=== PATIENT | female | born 1945 | race Caucasian/White ===

== ENCOUNTER 2016-05-29 07:36 | Emergency (ER) | payer MEDICARE, OTHER ==
[~2016-05-29] VITALS: Ht 170.2 cm; Wt 111.9 kg
[~2016-05-29 07:36] MED LIST: ASCO-296 PO; ATOR10TA33 PO; CALC-585 PO; CALC-652 PO; CHOL200026 PO; DIAZ5TAB4 PO; DOCO1CAP6 PO; LORA10TA7 PO; MULT-543 PO; NAPR220T8 PO; POTA99TA16 PO; RANI-197 PO; RISP1TAB PO; SERT-77 PO; TRAM-277 PO; [UNRECOGNIZED DRUG - CODE] PO
--- OUTSIDE RECORDS SUMMARY | 2016-05-29 07:40 | XMS REPORT | CCD ---
Author Author YOVANI RUEDA Organization Unknown Address [address] [place] [phone] Phone 0 Care Team Providers Care Net Repairer Name Role Phone JOSELITO RUIZ Attending Physician 0 Vital Signs Unknown or Not Available. Allergies Allergy Code Allergy Type Reaction Status CLINDAMYCIN 88941 Drug allergy Active KEFLEX 39504 Drug allergy Active SIMVASTATIN 98438 Drug allergy Active Procedures Unknown or Not Available. History of Immunizations Unknown or Not Available. Problems Unknown or Not Available. Results UA AUTO W/ MICRO - Collect Date/Time: 07/14/2015 15:18 Test Name Code Test Result Test Units Test Ref Range COLOR Yellow N/A NORMAL: Yellow APPEARANCE Clear N/ A NORMAL: Clear GLUCOSE Negative N/ A NORMAL: Negative BILIRUBIN Negative N /A NORMAL: Negative KETONE Trace N/A NORMAL: Negative SPEC GRAVITY >=1.030 N/A NORMAL: 1.005-1.030 BLOOD Negative N/A NORMAL: Negative PROTEIN Negative N/ A NORMAL: Negative PH 5.5 N/A NORMAL: 5.0-8.0 UROBILINOGEN 0.2 N/ A NORMAL: Negative NITRITE Positive N/ A NORMAL: Negative LEUKOCYTES Trace N/ A NORMAL: Negative MICRO RBC 0-2 N/A NORMAL: 0-2 MICRO WBC 5-10 N/A NORMAL: 0-2 BACTERIA 3+ N/A NORMAL: None-Trace EPI CELLS 0-5 N/A NORMAL: 0-15 MUCUS Small N/A NORMAL: None-Small AMORPHOUS None Seen N/A NORMAL: None Seen YEAST None Seen N/A NORMAL: None Seen CRYSTALS Calcium O N /A NORMAL: None Seen CAST None Seen N/A NORMAL: None Seen URINE CULTURE? YES N /A CULTURE URINE - Collect Date/Time: 07/14/2015 15:18 Test Name Code Test Result Test Units Test Ref Range SPEC SOURCE: RANDOM N/A Urine Culture, Routine 630-4 Final report N/A Active Medications Unknown or Not Available. Medications Administered During Visit Unknown or Not Available. Encounters Encounter Diagnosis Diagnosis Code Start Date Frequency of micturition R350 07/14/2015 Social History Smoking Status Code Start Date End Date Never smoker [id number] Patient Decision Aids Unknown or Not Available. Discharge Instructions You were admitted to [facility] on 07/14/2015 15:02 with a principal diagnosis of Frequency of micturition You had the following tests done: CULTURE URINE UA AUTO W/ MICRO You were discharged from [facility] on 07/14/2015 15:02 Should you have any questions prior to discharge, please contact a member of your healthcare team. If you have left the hospital and have any questions, please contact your primary care physician. Chief Complaint and Reason For Visit Chief Complaint Date of Onset LAB Function Status Unknown or Not Available. Plan of Care Unknown or Not Available. Referral/Transition of Care Unknown or Not Available.
--- OUTSIDE RECORDS SUMMARY | 2016-05-29 07:40 | XMS REPORT | CCD ---
Author Author YOVANI RUEDA Organization Unknown Address [address], [place] [phone] Phone 0 Care Team Providers Care Phlebotomy Technologist Name Role Phone JOSELITO RUIZ Attending Physician 0 Vital Signs Unknown or Not Available. Allergies Allergy Code Allergy Type Reaction Status CLINDAMYCIN 01916 Drug allergy Active KEFLEX 67924 Drug allergy Active SIMVASTATIN 91272 Drug allergy Active Procedures Unknown or Not Available. History of Immunizations Unknown or Not Available. Problems Unknown or Not Available. Results COMP METABOLIC - Collect Date/Time: 02/08/2015 11:57 Test Name Code Test Result Test Units Test Ref Range GLUCOSE 103 mg/dL L=70 H=110 BUN 23 mg/dL L=7 H=18 CREATININE 0.90 mg/ dL L=0.60 H=1.30 AGE 69 YEARS GFR 66.4 SODIUM 138 mmol/L L=136 H=145 POTASSIUM 4.3 mmol/ L L=3.5 H=5.1 CHLORIDE 105 mmol/L L=98 H=107 CO2 26 mmol/L L=21 H=32 CALCIUM 9.1 mg/dL L=8.5 H=10.1 AST 13 U/L L=15 H=37 ALT 21 U/L L=12 H=78 ALKALINE PHOS 76 U/ L L=50 H=136 TOTAL PROTEIN 7.2 g/ dL L=6.4 H=8.2 ALBUMIN 4.3 g/dL L=3.4 H=5.0 TOTAL BILI 0.40 mg/ dL L=0.00 H=1.00 THYROXINE (T4) FREE - Collect Date/Time: 02/08/2015 11:57 Test Name Code Test Result Test Units Test Ref Range FT4 0.85 ng/dL L=0.76 H=1.46 TSH - Collect Date/Time: 02/08/2015 11:57 Test Name Code Test Result Test Units Test Ref Range TSH 0.71 uIU/mL L=0.36 H=3.74 CBC W/ DIFF - Collect Date/Time: 02/08/2015 11:57 Test Name Code Test Result Test Units Test Ref Range WBC 5.2 x10^3 L=4.8 H=10.8 RBC 4.26 x10^6 L=4.20 H=5.40 HEMOGLOBIN 13.6 g/ dL L=12.0 H=16.0 HEMATOCRIT 41.2 % L=37.0 H=47.0 MCV 97 fL L=80 H=100 MCH 31.9 pg L=27.0 H=33.0 MCHC 32.9 g/dL L=33.0 H=37.0 RDW 14.1 % L=11.5 H=14.5 PLATELETS 231 x10^3 L=150 H=450 MPV 6.9 fL L=7.8 H=11.0 NEUTROPHILS 60.7 % L=40.0 H=80.0 LYMPHOCYTES 28.8 % L=20.0 H=45.0 MONOCYTES 7.5 % L=0.0 H=10.0 EOSINOPHILS 2.4 % L=0.0 H=5.0 BASOPHILS 0.6 % L=0.0 H=2.0 REFLEX MAN DIFF NO N /A UA AUTO W/ MICRO - Collect Date/Time: 02/08/2015 11:57 Test Name Code Test Result Test Units Test Ref Range COLOR Yellow N/A NORMAL: Yellow APPEARANCE Clear N/ A NORMAL: Clear GLUCOSE Negative N/ A NORMAL: Negative BILIRUBIN Negative N /A NORMAL: Negative KETONE Trace N/A NORMAL: Negative SPEC GRAVITY >=1.030 N/A NORMAL: 1.005-1.030 BLOOD Negative N/A NORMAL: Negative PROTEIN 30 N/A NORMAL: Negative PH 5.0 N/A NORMAL: 5.0-8.0 UROBILINOGEN 0.2 N/ A NORMAL: Negative NITRITE Negative N/ A NORMAL: Negative LEUKOCYTES Negative N/A NORMAL: Negative MICRO RBC 0-2 N/A NORMAL: 0-2 MICRO WBC 10-20 N/A NORMAL: 0-2 BACTERIA 1+ N/A NORMAL: None-Trace EPI CELLS 5-10 N/A NORMAL: 0-15 MUCUS Large N/A NORMAL: None-Small AMORPHOUS Small N/A NORMAL: None Seen YEAST None Seen N/A NORMAL: None Seen CRYSTALS Calcium O N /A NORMAL: None Seen CAST None Seen N/A NORMAL: None Seen URINE CULTURE? NO N/ A Active Medications Unknown or Not Available. Medications Administered During Visit Unknown or Not Available. Encounters Encounter Diagnosis Diagnosis Code Start Date Unspecified atrial fibrillation [id number] Social History Smoking Status Code Start Date End Date Never smoker [id number] Patient Decision Aids Unknown or Not Available. Discharge Instructions You were admitted to [facility] on 02/08/2015 with a principal diagnosis of Unspecified atrial fibrillation. You were discharged from [facility] on 02/08/2015. Should you have any questions prior to [...]
--- OUTSIDE RECORDS SUMMARY | 2016-05-29 07:40 | XMS REPORT | CCD ---
Author Author WINIFRED VANN Organization Unknown Address [address] [place] [phone] Phone 0 Care Team Providers Care Station Operator Name Role Phone JOSELITO RUIZ Attending Physician 0 Vital Signs Unknown or Not Available. Allergies Unknown or Not Available. Procedures Unknown or Not Available. History of Immunizations Unknown or Not Available. Problems Unknown or Not Available. Results Unknown or Not Available. Active Medications Unknown or Not Available. Medications Administered During Visit Unknown or Not Available. Encounters Unknown or Not Available. Social History Smoking Status Code Start Date End Date Never smoker [id number] Patient Decision Aids Unknown or Not Available. Discharge Instructions You were admitted to [facility] on 10/12/2014. You were discharged from [facility] on 10/12/2014. Should you have any questions prior to discharge, please contact a member of your healthcare team. If you have left the hospital and have any questions, please contact your primary care physician. Chief Complaint and Reason For Visit Chief Complaint Date of Onset MM BILAT SCREEN Function Status Unknown or Not Available. Plan of Care Unknown or Not Available. Referral/Transition of Care Unknown or Not Available.
--- OUTSIDE RECORDS SUMMARY | 2016-05-29 07:40 | XMS REPORT | CCD ---
Author Author WINIFRED VANN Organization Unknown Address [address] [place] [phone] Phone 0 Care Team Providers Care Administrative Resources Associate Name Role Phone JOSELITO RUIZ Attending Physician [...] Code Start Date End Date Never smoker [id number] Patient Decision Aids Unknown or Not Available. Discharge Instructions You were admitted to [facility] on 02/27/2014. You were discharged from [facility] on 02/27/2014. Should you have any questions prior to discharge, please contact a member of your healthcare team. If you have left the hospital and have any questions, please contact your primary care physician. Chief Complaint and Reason For Visit Chief Complaint Date of Onset PRE-OP EKG Function Status Unknown or Not Available. Plan of Care Unknown or Not Available. Referral/Transition of Care Unknown or Not Available.
--- OUTSIDE RECORDS SUMMARY | 2016-05-29 07:41 | XMS REPORT | CCD ---
Author Author YOVANI RUEDA Organization Unknown Address [address] [place] [phone] Phone 0 Care Team Providers Care Ex Assistant/Program Director Name Role Phone LIZZIE ZARATE Attending Physician 0 Vital Signs Unknown or Not Available. Allergies Allergy Code Allergy Type Reaction Status CLINDAMYCIN 55531 Drug allergy Active IODINE 5933 Drug allergy Active KEFLEX 20392 Drug allergy Active SIMVASTATIN 75714 Drug allergy Active Procedures Unknown or Not Available. History of Immunizations Unknown or Not Available. Problems Unknown or Not Available. Results Unknown or Not Available. Active Medications Unknown or Not Available. Medications Administered During Visit Unknown or Not Available. Encounters Encounter Diagnosis Diagnosis Code Start Date Trochanteric bursitis, left hip M7062 03/2016 Social History Smoking Status Code Start Date End Date Never smoker [id number] Patient Decision Aids Unknown or Not Available. Discharge Instructions You were admitted to [facility] on 03/23/2016 10:29 with a principal diagnosis of Trochanteric bursitis, left hip You were discharged from [facility] Should you have any questions prior to discharge, please contact a member of your healthcare team. If you have left the hospital and have any questions, please contact your primary care physician. Chief Complaint and Reason For Visit Chief Complaint Date of Onset PHY THER Function Status Unknown or Not Available. Plan of Care Unknown or Not Available. Referral/Transition of Care Unknown or Not Available.
--- OUTSIDE RECORDS SUMMARY | 2016-05-29 07:41 | XMS REPORT | Continuity of Care Document ---
Author Author [facility] Organization [facility] Address Unknown Phone Unavailable Allergies Active Description Code Type Severity Reaction Onset Reported/Identified Relationship to Patient Clinical Status Yes CEPHALEXIN MONOHYDRATE 6830 1 N/A N/A Yes clindamycin 2794 1 N/A N/A Yes iodine 852 1 N/A N/A Yes Xehydcu-Xod-Byy Reductase Inhibitors 139187 3 N/A N/A Yes iodine Drug Allergy Moderate SHAKING, VOMITING 04/14/2013 Yes No Known Food Allergies Food Allergy N/A N/A 04/14/2013 Medications Problems Date Dx Coded Attending Type Code Diagnosis Diagnosed By 04/14/2013 Micah Nagel MD Final 272.2 MIXED HYPERLIPIDEMIA 04/14/2013 Micah Nagel MD Final 278.00 OBESITY NOS 04/14/2013 Micah Nagel MD Final 296.80 BIPOLAR DISORDER NOS 04/14/2013 Micah Nagel MD Final 427.31 ATRIAL FIBRILLATION 04/14/2013 Micah Nagel MD Admitting 786.50 CHEST PAIN NOS 04/14/2013 Micah Nagel MD Final 786.59 CHEST PAIN NEC 04/14/2013 Micah Nagel MD Final V85.37 BMI 37.0-37.9 ADULT 04/14/2013 Micah Nagel MD Admitting 786.51 PRECORDIAL PAIN 03/20/2016 W G89.29 Other chronic pain 03/20/2016 W 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 Visit Date/Time Discharge Status Pt. Type Provider Facility Loc./Unit Complaint [id number] 04/14/2013 12:51:00 2013 21:52:00 DIS Outpatient Micah Nagel MD [facility] on [address]
--- OUTSIDE RECORDS SUMMARY | 2016-05-29 07:41 | XMS REPORT | CCD ---
Author Author WINIFRED VANN Organization Unknown Address [address] [place] [phone] Phone 0 Care Team Providers Care Residential Advisor Name Role Phone JOSELITO RUIZ Attending Physician [...] Code Start Date End Date Never smoker [id number] Patient Decision Aids Unknown or Not Available. Discharge Instructions [facility] were [facility] on 10/12/2014. You were discharged from [facility] on 10/12/2014. Should you have any questions [...]
--- OUTSIDE RECORDS SUMMARY | 2016-05-29 07:41 | XMS REPORT | CCD ---
Author Author WINIFRED VANN Organization Unknown Address [address] [place] [phone] Phone 0 Care Team Providers Care Supply Officer Name Role Phone JOSELITO RUIZ Attending Physician 0 Vital Signs Unknown or Not Available. Allergies Unknown or Not Available. Procedures Unknown or Not Available. History of Immunizations Unknown or Not Available. Problems Unknown or Not Available. Results Unknown or Not Available. Medications Unknown or Not Available. Medications Administered Unknown or Not Available. Encounters Unknown or Not Available. Social History Smoking Status Code Start Date End Date Never smoker [id number] Patient Decision Aids Unknown or Not Available. Discharge Instructions You were admitted to [facility] on 11/18/2013[facility] You were discharged from [facility] on 11/18/2013. Should you have any questions prior to discharge, please contact a member of your healthcare team. If you have left the hospital and have any questions, please contact your primary care physician. Chief Complaint and Reason For Visit Chief Complaint Date of Onset US SOFT TISSUE HEAD NECK Function Status Unknown or Not Available. Plan of Care Unknown or Not Available. Referral/Transition of Care Unknown or Not Available.
--- OUTSIDE RECORDS SUMMARY | 2016-05-29 07:41 | XMS REPORT | CCD ---
Author Author WINIFRED VANN Organization Unknown Address [address], [place] [phone] Phone 0 Care Team Providers Care Newspaper Writer Name Role Phone JOSELITO RUIZ Attending Physician 0 Vital Signs Unknown or Not Available. Allergies Unknown or Not Available. Procedures Unknown or Not Available. History of Immunizations Unknown or Not Available. Problems Unknown or Not Available. Results HEPATIC FUNCTION - Collect Date/Time: 11/11/2013 15:25 Test Name Code Test Result Test Units Test Ref Range AST 12 U/L L=15 H=37 ALT 23 U/L L=12 H=78 ALKALINE PHOS 63 U/ L L=50 H=136 TOTAL PROTEIN 7.0 g/ dL L=6.4 H=8.2 ALBUMIN 4.0 g/dL L=3.4 H=5.0 TOTAL BILI 0.50 mg/ dL L=0.00 H=1.00 DIRECT BILI 0.10 mg/ dL L=0.00 H=0.30 LIPID PANEL - Collect Date/Time: 11/11/2013 15:25 Test Name Code Test Result Test Units Test Ref Range CHOLESTEROL 251 mg/ dL L=0 H=200 TRIGLYCERIDES 51 mg/ dL L=30 H=150 HDL 91 mg/dL L=50 H=60 LDL, CALC 150 mg/dL L=0 H=100 VLDL 10 mg/dL L=0 H=40 CHOL/HDL RISK 2.8 RATIO L=0.0 H=4.4 PT FASTING: NO N/A THYROXINE (T4) FREE - Collect Date/Time: 11/11/2013 15:25 Test Name Code Test Result Test Units Test Ref Range FT4 1.06 ng/dL L=0.76 H=1.46 TSH - Collect Date/Time: 11/11/2013 15:25 Test Name Code Test Result Test Units Test Ref Range TSH 2.01 uIU/mL L=0.36 H=3.74 Medications Unknown or Not Available. Medications Administered Unknown or Not Available. Encounters Encounter Diagnosis Diagnosis Code Start Date HYPERLIPIDEMIA NEC NOS 2724 11/11/2013 Social History Smoking Status Code Start Date End Date Never smoker [id number] Patient Decision Aids Unknown or Not Available. Discharge Instructions You were admitted to [facility] on 11/11/2013 with a principal diagnosis of HYPERLIPIDEMIA NEC NOS. You were discharged from [facility] on 11/11/2013. Should you have any questions prior to [...]
--- OUTSIDE RECORDS SUMMARY | 2016-05-29 07:41 | XMS REPORT | CCD ---
Author Author BECKY ORTA Organization Unknown Address [address] [place] [phone] Phone 0 Care Team Providers Care Supersonic Engineer Name Role Phone JOSELITO RUIZ Attending Physician 0 Vital Signs Unknown. Allergies Unknown. Procedures Unknown. History of Immunizations Unknown. Problems Unknown. Results COMP METABOLIC Test Name Code Test Result Test Units Test Date/Time GLUCOSE 103.0000 mg/ dL 03/12/2013 15:10 BUN 29.0000 mg/dL 03/12/2013 15:10 CREATININE 0.9000 mg /dL 03/12/2013 15:10 [age] YE[age] 03/12/2013 15:10 GFR 66.8000 03/12/2013 15:10 SODIUM 143.0000 mmol /L 03/12/2013 15:10 POTASSIUM 4.2000 mmol/L 03/12/2013 15:10 CHLORIDE 107.0000 mmol/L 03/12/2013 15:10 CO2 27.0000 mmol/L 03/12/2013 15:10 CALCIUM 9.0000 mg/ dL 03/12/2013 15:10 AST 14.0000 U/L 03/12/2013 15:10 ALT 30.0000 U/L 03/12/2013 15:10 ALKALINE PHOS 91.0000 U/L 03/12/2013 15:10 TOTAL PROTEIN 7.3000 g/dL 03/12/2013 15:10 ALBUMIN 4.1000 g/dL 03/12/2013 15:10 TOTAL BILI 0.5000 mg /dL 03/12/2013 15:10 CBC W/ DIFF Test Name Code Test Result Test Units Test Date/Time WBC 5.7000 x10^3 03/12/2013 15:10 RBC 4.1200 x10^6 03/12/2013 15:10 HEMOGLOBIN 13.2000 g /dL 03/12/2013 15:10 HEMATOCRIT 40.0000 % 03/12/2013 15:10 MCV 97.0000 fL 03/12/2013 15:10 MCH 32.1000 pg 03/12/2013 15:10 MCHC 33.2000 g/dL 03/12/2013 15:10 RDW 13.6000 % 03/12/2013 15:10 PLATELETS 219.0000 x10^3 03/12/2013 15:10 MPV 7.4000 fL 03/12/2013 15:10 NEUTROPHILS 49.1000 % 03/12/2013 15:10 LYMPHOCYTES 36.3000 % 03/12/2013 15:10 MONOCYTES 10.7000 % 03/12/2013 15:10 EOSINOPHILS 3.1000 % 03/12/2013 15:10 BASOPHILS 0.8000 % 03/12/2013 15:10 REFLEX MAN DIFF NO N /A 03/12/2013 15:10 THYROXINE (T4) FREE Test Name Code Test Result Test Units Test Date/Time FT4 1.1000 ng/dL 03/12/2013 15:10 LIPID PANEL Test Name Code Test Result Test Units Test Date/Time CHOLESTEROL 193.0000 mg/dL 03/12/2013 15:10 TRIGLYCERIDES 79.0000 mg/dL 03/12/2013 15:10 HDL 89.0000 mg/dL 03/12/2013 15:10 LDL, CALC 88.0000 mg /dL 03/12/2013 15:10 VLDL 16.0000 mg/dL 03/12/2013 15:10 CHOL/HDL RISK 2.2000 RATIO 03/12/2013 15:10 PT FASTING: NO N/A 03/12/2013 15:10 TROPONIN I (QUANT) Test Name Code Test Result Test Units Test Date/Time TROPONIN I 0.0200 ng /mL 03/12/2013 15:10 TSH Test Name Code Test Result Test Units Test Date/Time TSH 2.8100 uIU/mL 03/12/2013 15:10 UA AUTO W/ MICRO Test Name Code Test Result Test Units Test Date/Time COLOR Yellow N/A 03/12/2013 15:10 APPEARANCE Clear N/ A 03/12/2013 15:10 GLUCOSE Negative N/ A 03/12/2013 15:10 BILIRUBIN Negative N /A 03/12/2013 15:10 KETONE Negative N/A 03/12/2013 15:10 SPEC GRAVITY 1.020 N /A 03/12/2013 15:10 BLOOD Negative N/A 03/12/2013 15:10 PROTEIN Trace N/A 03/12/2013 15:10 PH 7.5 N/A 03/12/2013 15:10 UROBILINOGEN 0.2 N/ A 03/12/2013 15:10 NITRITE Negative N/ A 03/12/2013 15:10 LEUKOCYTES Negative N/A 03/12/2013 15:10 MICRO RBC 0-2 N/A 03/12/2013 15:10 MICRO WBC 0-2 N/A 03/12/2013 15:10 BACTERIA Trace N/A 03/12/2013 15:10 EPI CELLS 0-5 N/A 03/12/2013 15:10 MUCUS Trace N/A 03/12/2013 15:10 AMORPHOUS Trace N/A 03/12/2013 15:10 YEAST None Seen N/A 03/12/2013 15:10 CRYSTALS None Seen N /A 03/12/2013 15:10 CAST None Seen N/A 03/12/2013 15:10 URINE CULTURE? NO N/ A 03/12/2013 15:10 Medications Unknown. Medications Administered Unknown. Encounters Unknown. Social History Smoking Status Code Start Date End Date Never smoker [id number] Patient Decision Aids Unknown. Instructions You were admitted to [facility] on 03/12/2013. You had the following tests done: WBC RBC HEMOGLOBIN HEMATOCRIT MCV MCH MCHC RDW PLATELETS MPV NEUTROPHILS LYMPHOCYTES MONOCYTES EOSINOPHILS BASOPHILS REFLEX MAN DIFF GLUCOSE BUN CREATININE AGE GFR SODIUM POTASSIUM CHLORIDE CO2 CALCIUM AST ALT ALKALINE PHOS TOTAL PROTEIN ALBUMIN TOTAL BILI PT FASTING: CHOLESTEROL TRIGLYCERIDES HDL LDL, CALC VLDL CHOL/HDL RISK FT4 TSH TROPONIN I COLOR APPEARANCE GLUCOSE BILIRUBIN KETONE SPEC GRAVITY BLOOD PROTEIN PH UROBILINOGEN NITRITE LEUKOCYTES MICRO RBC MICRO WBC BACTERIA EPI CELLS MUCUS AMORPHOUS YEAST CRYSTALS CAST URINE CULTURE? You were discharged from [facility] on 03/12/2013. Should you have any questions prior to discharge, please contact a member of your healthcare team. If you have left the hospital and have any questions, please contact your primary care physician. Chief Complaint and Reason For Visit Chief Complaint Date of Onset LAB XR CHEST EKG Function Status Unknown. Plan of Care Unknown. Referral/Transition of Care Unknown.
--- OUTSIDE RECORDS SUMMARY | 2016-05-29 07:41 | XMS REPORT | CCD ---
Author Author YOVANI RUEDA Organization Unknown Address [address], [place] [phone] Phone 0 Care Team Providers Care Consumer Loan Underwriter Name Role Phone JOSELITO RUIZ Attending Physician 0 Vital Signs Unknown or Not Available. Allergies Allergy Code Allergy Type Reaction Status CLINDAMYCIN 87929 Drug allergy Active KEFLEX 36030 Drug allergy Active SIMVASTATIN 02738 Drug allergy Active Procedures Procedure Code Procedure Type Date CHEST [id number] 03/31/2015 History of Immunizations Unknown or Not Available. Problems Unknown or Not Available. Results BASIC METABOLIC - Collect Date/Time: 03/31/2015 15:06 Test Name Code Test Result Test Units Test Ref Range GLUCOSE 113 mg/dL L=70 H=110 BUN 22 mg/dL L=7 H=18 CREATININE 0.90 mg/ dL L=0.60 H=1.30 AGE 69 YEARS GFR 66.4 SODIUM 141 mmol/L L=136 H=145 POTASSIUM 3.9 mmol/ L L=3.5 H=5.1 CHLORIDE 104 mmol/L L=98 H=107 CO2 26 mmol/L L=21 H=32 CALCIUM 9.4 mg/dL L=8.5 H=10.1 CBC W/ DIFF - Collect Date/Time: 03/31/2015 15:06 Test Name Code Test Result Test Units Test Ref Range WBC 6.0 x10^3 L=4.8 H=10.8 RBC 4.18 x10^6 L=4.20 H=5.40 HEMOGLOBIN 13.4 g/ dL L=12.0 H=16.0 HEMATOCRIT 40.8 % L=37.0 H=47.0 MCV 98 fL L=80 H=100 MCH 31.9 pg L=27.0 H=33.0 MCHC 32.7 g/dL L=33.0 H=37.0 RDW 13.9 % L=11.5 H=14.5 PLATELETS 247 x10^3 L=150 H=450 MPV 7.6 fL L=7.8 H=11.0 NEUTROPHILS 57.3 % L=40.0 H=80.0 LYMPHOCYTES 31.8 % L=20.0 H=45.0 MONOCYTES 7.5 % L=0.0 H=10.0 EOSINOPHILS 2.7 % L=0.0 H=5.0 BASOPHILS 0.7 % L=0.0 H=2.0 REFLEX MAN DIFF NO N /A UA AUTO W/ MICRO - Collect Date/Time: 03/31/2015 15:10 Test Name Code Test Result Test Units Test Ref Range COLOR Yellow N/A NORMAL: Yellow APPEARANCE Clear N/ A NORMAL: Clear GLUCOSE Negative N/ A NORMAL: Negative BILIRUBIN Negative N /A NORMAL: Negative KETONE Negative N/A NORMAL: Negative SPEC GRAVITY 1.015 N /A NORMAL: 1.005-1.030 BLOOD Negative N/A NORMAL: Negative PROTEIN Negative N/ A NORMAL: Negative PH 6.5 N/A NORMAL: 5.0-8.0 UROBILINOGEN 0.2 N/ A NORMAL: Negative NITRITE Negative N/ A NORMAL: Negative LEUKOCYTES Trace N/ A NORMAL: Negative MICRO RBC None Seen N/A NORMAL: 0-2 MICRO WBC 2-5 N/A NORMAL: 0-2 BACTERIA Trace N/A NORMAL: None-Trace EPI CELLS 5-10 N/A NORMAL: 0-15 MUCUS None Seen N/A NORMAL: None-Small AMORPHOUS Trace N/A NORMAL: None Seen YEAST None Seen N/A NORMAL: None Seen CRYSTALS None Seen N /A NORMAL: None Seen CAST None Seen N/A NORMAL: None Seen URINE CULTURE? NO N/ A Active Medications Unknown or Not Available. Medications Administered During Visit Unknown or Not Available. Encounters Encounter Diagnosis Diagnosis Code Start Date Encounter for other preprocedural examination [id number] 03/31/2015 Social History Smoking Status Code Start Date End Date Never smoker [id number] Patient Decision Aids Unknown or Not Available. Discharge Instructions You were admitted to [facility] on 03/31/2015 with a principal diagnosis of Encounter for other preprocedural examination. You were discharged from [facility] on 03/31/2015. Should you have any questions prior to discharge, please contact a member of your healthcare team. If you have left the hospital and have any questions, please contact your primary care physician. Chief Complaint and Reason For Visit Chief Complaint Date of Onset XR CHEST LAB Function Status Unknown or Not Available. Plan of Care Unknown or Not Available. Referral/Transition of Care Unknown or Not Available.
--- OUTSIDE RECORDS SUMMARY | 2016-05-29 07:41 | XMS REPORT | CCD ---
Author WINIFRED Schaefer Organization Unknown Address [address] [place], [place] [phone] Phone 0 Care Team Providers Care Online Producer Name Role Phone JOSELITO RUIZ Attending Physician 0 Vital Signs Unknown or Not Available. Allergies Unknown or Not Available. Procedures Unknown or Not Available. History of Immunizations Unknown or Not Available. Problems Unknown or Not Available. Results BASIC METABOLIC - Collect Date/Time: 06/08/2014 14:25 Test Name Code Test Result Test Units Test Ref Range GLUCOSE 163 mg/dL L=70 H=110 BUN 25 mg/dL L=7 H=18 CREATININE 1.00 mg/ dL L=0.60 H=1.30 AGE 69 YEARS GFR 58.8 SODIUM 141 mmol/L L=136 H=145 POTASSIUM 3.9 mmol/ L L=3.5 H=5.1 CHLORIDE 105 mmol/L L=98 H=107 CO2 28 mmol/L L=21 H=32 CALCIUM 8.8 mg/dL L=8.5 H=10.1 CBC (HEMOGRAM ONLY) - Collect Date/Time: 06/08/2014 14:25 Test Name Code Test Result Test Units Test Ref Range WBC 5.5 x10^3 L=4.8 H=10.8 RBC 4.03 x10^6 L=4.20 H=5.40 HEMOGLOBIN 13.0 g/ dL L=12.0 H=16.0 HEMATOCRIT 39.4 % L=37.0 H=47.0 MCV 98 fL L=80 H=100 MCH 32.3 pg L=27.0 H=33.0 MCHC 33.0 g/dL L=33.0 H=37.0 RDW 15.1 % L=11.5 H=14.5 PLATELETS 223 x10^3 L=150 H=450 MPV 7.0 fL L=7.8 H=11.0 Active Medications Unknown or Not Available. Medications Administered During Visit Unknown or Not Available. Encounters Unknown or Not Available. Social History Smoking Status Code Start Date End Date Never smoker [id number] Patient Decision Aids Unknown or Not Available. Discharge Instructions You were admitted to [facility] on 06/08/2014. You were discharged from [facility] on 06/08/2014. Should you have any questions prior to [...]
--- OUTSIDE RECORDS SUMMARY | 2016-05-29 07:41 | XMS REPORT | CCD ---
Author WINIFRED Schaefer Organization Unknown Address [address] [place] [phone] Phone 0 Care Team Providers Care Microwave Remote Sensing Scientist Name Role Phone Kvng ZALDIVAR Attending Physician 0 Vital Signs Unknown or Not Available. Allergies Unknown or Not Available. Procedures Unknown or Not Available. History of Immunizations Unknown or Not Available. Problems Unknown or Not Available. Results CBC W/ DIFF Test Name Code Test Result Test Units Test Date/Time WBC 5.8000 x10^3 08/12/2013 09:45 RBC 4.5000 x10^6 08/12/2013 09:45 HEMOGLOBIN 14.5000 g /dL 08/12/2013 09:45 HEMATOCRIT 42.8000 % 08/12/2013 09:45 MCV 95.0000 fL 08/12/2013 09:45 MCH 32.2000 pg 08/12/2013 09:45 MCHC 33.9000 g/dL 08/12/2013 09:45 RDW 13.9000 % 08/12/2013 09:45 PLATELETS 222.0000 x10^3 08/12/2013 09:45 MPV 7.2000 fL 08/12/2013 09:45 NEUTROPHILS 67.0000 % 08/12/2013 09:45 LYMPHOCYTES 24.2000 % 08/12/2013 09:45 MONOCYTES 6.2000 % 08/12/2013 09:45 EOSINOPHILS 2.1000 % 08/12/2013 09:45 BASOPHILS 0.5000 % 08/12/2013 09:45 REFLEX MAN DIFF NO N /A 08/12/2013 09:45 COMP METABOLIC Test Name Code Test Result Test Units Test Date/Time GLUCOSE 120.0000 mg/ dL 08/12/2013 09:45 BUN 15.0000 mg/dL 08/12/2013 09:45 CREATININE 0.8000 mg /dL 08/12/2013 09:45 AGE 68.0000 YE[age] 08/12/2013 09:45 GFR 76.3000 08/12/2013 09:45 SODIUM 137.0000 mmol /L 08/12/2013 09:45 POTASSIUM 4.3000 mmol/L 08/12/2013 09:45 CHLORIDE 103.0000 mmol/L 08/12/2013 09:45 CO2 26.0000 mmol/L 08/12/2013 09:45 CALCIUM 9.4000 mg/ dL 08/12/2013 09:45 AST 18.0000 U/L 08/12/2013 09:45 ALT 26.0000 U/L 08/12/2013 09:45 ALKALINE PHOS 76.0000 U/L 08/12/2013 09:45 TOTAL PROTEIN 8.0000 g/dL 08/12/2013 09:45 ALBUMIN 4.3000 g/dL 08/12/2013 09:45 TOTAL BILI 0.4000 mg /dL 08/12/2013 09:45 UA AUTO W/ MICRO Test Name Code Test Result Test Units Test Date/Time COLOR Yellow N/A 08/12/2013 09:45 APPEARANCE Clear N/ A 08/12/2013 09:45 GLUCOSE Negative N/ A 08/12/2013 09:45 BILIRUBIN Negative N /A 08/12/2013 09:45 KETONE Negative N/A 08/12/2013 09:45 SPEC GRAVITY 1.015 N /A 08/12/2013 09:45 BLOOD Negative N/A 08/12/2013 09:45 PROTEIN Negative N/ A 08/12/2013 09:45 PH 6.0 N/A 08/12/2013 09:45 UROBILINOGEN 0.2 N/ A 08/12/2013 09:45 NITRITE Negative N/ A 08/12/2013 09:45 LEUKOCYTES Negative N/A 08/12/2013 09:45 MICRO RBC 0-2 N/A 08/12/2013 09:45 MICRO WBC 0-2 N/A 08/12/2013 09:45 BACTERIA 1+ N/A 08/12/2013 09:45 EPI CELLS 10-15 N/A 08/12/2013 09:45 MUCUS Small N/A 08/12/2013 09:45 AMORPHOUS Small N/A 08/12/2013 09:45 YEAST None Seen N/A 08/12/2013 09:45 CRYSTALS None Seen N /A 08/12/2013 09:45 CAST None Seen N/A 08/12/2013 09:45 URINE CULTURE? NO N/ A 08/12/2013 09:45 CARDIAC PANEL Test Name Code Test Result Test Units Test Date/Time CKMB 0.7000 ng/mL 08/12/2013 09:45 CPK 54.0000 U/L 08/12/2013 09:45 CKMB% 1.3000 % 08/12/2013 09:45 TROPONIN I 0.0200 ng /mL 08/12/2013 09:45 Medications Unknown or Not Available. Medications Administered Unknown or Not Available. Encounters Unknown or Not Available. Social History Smoking Status Code Start Date End Date Never smoker [id number] Patient Decision Aids Unknown or Not Available. Discharge Instructions You were admitted to [facility] on 08/12/2013. You were discharged from [facility] on 08/12/2013. Should you have any questions prior to [...]
--- OUTSIDE RECORDS SUMMARY | 2016-05-29 07:41 | XMS REPORT | CCD ---
Author Author YOVANI RUEDA Organization Unknown Address [address] [place] [phone] Phone 0 Care Team Providers Care Rug Touch Up Painter Name Role Phone CARY SULLIVAN Attending Physician 0 Vital Signs Unknown or Not Available. Allergies Allergy Code Allergy Type Reaction Status CLINDAMYCIN 78462 Drug allergy Active KEFLEX 51343 Drug allergy Active SIMVASTATIN 70194 Drug allergy Active Procedures Unknown or Not Available. History of Immunizations Unknown or Not Available. Problems Unknown or Not Available. Results Unknown or Not Available. Active Medications Unknown or Not Available. Medications Administered During Visit Unknown or Not Available. Encounters Encounter Diagnosis Diagnosis Code Start Date Pain in right knee [id number] 03/02/2015 Social History Smoking Status Code Start Date End Date Never smoker [id number] Patient Decision Aids Unknown or Not Available. Discharge Instructions You were admitted to [facility] on 03/02/2015 with a principal diagnosis of Pain in right knee. Should you have any questions prior to discharge, please contact a member of your healthcare team. If you have left the hospital and have any questions, please contact your primary care physician. Chief Complaint and Reason For Visit Unknown or Not Available. Function Status Unknown or Not Available. Plan of Care Unknown or Not Available. Referral/Transition of Care Unknown or Not Available.
--- OUTSIDE RECORDS SUMMARY | 2016-05-29 07:41 | XMS REPORT | CCD ---
Author Author WINIFRED VANN Organization Unknown Address [address] [place] [phone] Phone 0 Care Team Providers Care Linen Aide Name Role Phone Kvng ZALDIVAR Attending Physician 0 Vital Signs Unknown or Not Available. Allergies Unknown or Not Available. Procedures Unknown or Not Available. History of Immunizations Unknown or Not Available. Problems Unknown or Not Available. Results HEPATIC FUNCTION Test Name Code Test Result Test Units Test Date/Time AST 17.0000 U/L 09/03/2013 17:05 ALT 29.0000 U/L 09/03/2013 17:05 ALKALINE PHOS 71.0000 U/L 09/03/2013 17:05 TOTAL PROTEIN 7.5000 g/dL 09/03/2013 17:05 ALBUMIN 4.2000 g/dL 09/03/2013 17:05 TOTAL BILI 0.4000 mg /dL 09/03/2013 17:05 DIRECT BILI 0.1000 mg/dL 09/03/2013 17:05 Medications Unknown or Not Available. Medications Administered Unknown or Not Available. Encounters Unknown or Not Available. Social History Smoking Status Code Start Date End Date Never smoker [id number] Patient Decision Aids Unknown or Not Available. Discharge Instructions You were admitted to [facility] on 09/03/2013. You were discharged from [facility] on 09/03/2013. Should you have any questions prior to [...]
--- OUTSIDE RECORDS SUMMARY | 2016-05-29 07:42 | XMS REPORT | CCD ---
Author WINIFRED Schaefer Organization Unknown Address [address] [place], [place] [phone] Phone 0 Care Team Providers Care Kinesiology Professor Name Role Phone JOSELITO RUIZ Attending Physician 0 Vital Signs Unknown or Not Available. Allergies Unknown or Not Available. Procedures Unknown or Not Available. History of Immunizations Unknown or Not Available. Problems Unknown or Not Available. Results BASIC METABOLIC - Collect Date/Time: 02/16/2014 10:35 Test Name Code Test Result Test Units Test Ref Range GLUCOSE 123 mg/dL L=70 H=110 BUN 18 mg/dL L=7 H=18 CREATININE 0.90 mg/ dL L=0.60 H=1.30 AGE 68 YEARS GFR 66.6 SODIUM 141 mmol/L L=136 H=145 POTASSIUM 4.2 mmol/ L L=3.5 H=5.1 CHLORIDE 105 mmol/L L=98 H=107 CO2 26 mmol/L L=21 H=32 CALCIUM 9.4 mg/dL L=8.5 H=10.1 CBC W/ DIFF - Collect Date/Time: 02/16/2014 10:35 Test Name Code Test Result Test Units Test Ref Range WBC 5.4 x10^3 L=4.8 H=10.8 RBC 4.32 x10^6 L=4.20 H=5.40 HEMOGLOBIN 13.4 g/ dL L=12.0 H=16.0 HEMATOCRIT 41.7 % L=37.0 H=47.0 MCV 96 fL L=80 H=100 MCH 31.0 pg L=27.0 H=33.0 MCHC 32.2 g/dL L=33.0 H=37.0 RDW 14.1 % L=11.5 H=14.5 PLATELETS 235 x10^3 L=150 H=450 MPV 7.1 fL L=7.8 H=11.0 NEUTROPHILS 65.7 % L=40.0 H=80.0 LYMPHOCYTES 24.1 % L=20.0 H=45.0 MONOCYTES 7.6 % L=0.0 H=10.0 EOSINOPHILS 2.0 % L=0.0 H=5.0 BASOPHILS 0.6 % L=0.0 H=2.0 REFLEX MAN DIFF NO N /A Active Medications Unknown or Not Available. Medications Administered During Visit Unknown or Not Available. Encounters Encounter Diagnosis Diagnosis Code Start Date JOINT PAIN-SHLDER [id number] 02/16/2014 Social History Smoking Status Code Start Date End Date Never smoker [id number] Patient Decision Aids Unknown or Not Available. Discharge Instructions You were admitted to [facility] on 02/16/2014 with a principal diagnosis of JOINT PAIN-SHLDER. You were discharged from [facility] on 02/16/2014. Should you have any questions prior to discharge, please contact a member of your healthcare team. If you have left the hospital and have any questions, please contact your primary care physician. Chief Complaint and Reason For Visit Chief Complaint Date of Onset XRAY/LAB Function Status Unknown or Not Available. Plan of Care Unknown or Not Available. Referral/Transition of Care Unknown or Not Available.
--- OUTSIDE RECORDS SUMMARY | 2016-05-29 07:42 | XMS REPORT | CCD ---
Author Author YOVANI RUEDA Organization Unknown Address [address] [place] [phone] Phone 0 Care Team Providers Care Underground Repairer Name Role Phone JOSELITO RUIZ Attending Physician 0 Vital Signs Unknown or Not Available. Allergies Allergy Code Allergy Type Reaction Status CLINDAMYCIN 74474 Drug allergy Active IODINE 5933 Drug allergy Active KEFLEX 28749 Drug allergy Active SIMVASTATIN 99114 Drug allergy Active Procedures Unknown or Not Available. History of Immunizations Unknown or Not Available. Problems Unknown or Not Available. Results Unknown or Not Available. Active Medications Unknown or Not Available. Medications Administered During Visit Unknown or Not Available. Encounters Encounter Diagnosis Diagnosis Code Start Date Encounter for screening mammogram for malignant neoplasm of breast Z1231 12/24/2015 Social History Smoking Status Code Start Date End Date Never smoker [id number] Patient Decision Aids Unknown or Not Available. Discharge Instructions You were admitted to [facility] on 12/24/2015 08:57 with a principal diagnosis of Encntr screen mammogram for malignant neoplasm of breas You were discharged from [facility] on 12/24/2015 08:57 Should you have any questions prior to [...]
--- OUTSIDE RECORDS SUMMARY | 2016-05-29 07:42 | XMS REPORT | CCD ---
Author Author YOVANI RUEDA Organization Unknown Address [address] [place] [phone] Phone 0 Care Team Providers Care Senior Search Marketing Analyst Name Role Phone JOSELITO RUIZ Attending Physician 0 F., AKHIL Nurse Assisstant 0 C., N Nurse Assisstant 0 H., A Nurse Assisstant 0 J., SHI Nurse Assisstant 0 Vital Signs Unknown or Not Available. Allergies Allergy Code Allergy Type Reaction Status CLINDAMYCIN 58696 Drug allergy Active IODINE 5933 Drug allergy Active KEFLEX 91945 Drug allergy Active SIMVASTATIN 92927 Drug allergy Active Procedures Unknown or Not Available. History of Immunizations Unknown or Not Available. Problems Unknown or Not Available. Results Unknown or Not Available. Active Medications Unknown or Not Available. Medications Administered During Visit Unknown or Not Available. Encounters Unknown or Not Available. Social History Smoking Status Code Start Date End Date Never smoker [id number] Patient Decision Aids Unknown or Not Available. Discharge Instructions You were admitted to [facility] on 08/05/2015 13:49 You were discharged from [facility] on 08/11/2015 16:30 Should you have any questions prior to discharge, please contact a member of your healthcare team. If you have left the hospital and have any questions, please contact your primary care physician. Chief Complaint and Reason For Visit Chief Complaint Date of Onset IV MEDS Function Status Unknown or Not Available. Plan of Care Unknown or Not Available. Referral/Transition of Care Unknown or Not Available.
--- OUTSIDE RECORDS SUMMARY | 2016-05-29 07:42 | XMS REPORT | Continuity of Care Document ---
Author Author [facility] Organization [facility] Address Unknown Phone Unavailable Allergies Active Description Code Type Severity Reaction Onset Reported/Identified Relationship to Patient Clinical Status Yes CEPHALEXIN MONOHYDRATE 6830 1 N/A N/A Yes clindamycin 2794 1 N/A N/A Yes iodine 852 1 N/A N/A Yes Jbjpeze-Qdb-Vuu Reductase Inhibitors 491488 3 N/A N/A Yes iodine Drug Allergy [...] Procedures Code Description [place] [address] TOTAL KNEE ARTHROPLASTY 04/12/2015 Results Encounters ACCT No. Visit Date/Time Discharge Status Pt. Type Provider Facility Loc./Unit Complaint [id number] 04/14/2013 12:51:00 2013 21:52:00 DIS Outpatient Micah Nagel MD [facility] on [address]
--- OUTSIDE RECORDS SUMMARY | 2016-05-29 07:42 | XMS REPORT | CCD ---
Author Author BECKY ORTA Organization Unknown Address [address] [place] [phone] Phone 0 Care Team Providers Care Vertical Punch Operator Name Role Phone JOSELITO RUIZ Attending Physician 0 Vital Signs Unknown. Allergies Unknown. Procedures Unknown. History of Immunizations Unknown. Problems Unknown. Results CARDIAC PANEL Test Name Code Test Result Test Units Test Date/Time CKMB 1.1000 ng/mL 03/17/2013 09:25 CPK 83.0000 U/L 03/17/2013 09:25 CKMB% 1.3000 % 03/17/2013 09:25 TROPONIN I 0.0200 ng /mL 03/17/2013 09:25 PT/INR Test Name Code Test Result Test Units Test Date/Time PT 9.9000 Secs 03/17/2013 09:25 INR 0.9700 03/17/2013 09:25 Medications Unknown. Medications Administered Unknown. Encounters Unknown. Social History Smoking Status Code Start Date End Date Never smoker [id number] Patient Decision Aids Unknown. Instructions You were admitted to [facility] on 03/17/2013. You had the following tests done: PT INR CKMB CPK CKMB% TROPONIN I You were discharged from [facility] on 03/17/2013. Should you have any questions prior to discharge, please contact a member of your healthcare team. If you have left the hospital and have any questions, please contact your primary care physician. Chief Complaint and Reason For Visit Chief Complaint Date of Onset EKG/LAB Function Status Unknown. Plan of Care Unknown. Referral/Transition of Care Unknown.
--- OUTSIDE RECORDS SUMMARY | 2016-05-29 07:42 | XMS REPORT | CCD ---
Author Author BECKY ORTA Organization Unknown Address [address] [place] [phone] Phone 0 Care Team Providers Care Softball Player Name Role Phone JOSELITO RUIZ Attending Physician [...] Code Start Date End Date Never smoker [id number] Patient Decision Aids Unknown. Instructions You were admitted to [facility] on 03/12/2013. You had the following tests [...] CAST URINE CULTURE? You were discharged from [facility] on 03/12/2013. Should you have any questions [...]
--- OUTSIDE RECORDS SUMMARY | 2016-05-29 07:42 | XMS REPORT | CCD ---
Author Author YOVANI RUEDA Organization Unknown Address [address] [place] [phone] Phone 0 Care Team Providers Care Station Chief Name Role Phone JOSELITO RUIZ Attending Physician 0 Vital Signs Unknown or Not Available. Allergies Allergy Code Allergy Type Reaction Status CLINDAMYCIN 32251 Drug allergy Active KEFLEX 44107 Drug allergy Active SIMVASTATIN 10270 Drug allergy Active Procedures Unknown or Not Available. History of Immunizations Unknown or Not Available. Problems Unknown or Not Available. Results UA AUTO W/ MICRO - Collect Date/Time: 08/02/2015 13:30 Test Name Code Test Result Test Units Test Ref Range COLOR Yellow N/A NORMAL: Yellow APPEARANCE Clear N/ A NORMAL: Clear GLUCOSE Negative N/ A NORMAL: Negative BILIRUBIN Negative N /A NORMAL: Negative KETONE Negative N/A NORMAL: Negative SPEC GRAVITY >=1.030 N/A NORMAL: 1.005-1.030 BLOOD Negative N/A NORMAL: Negative PROTEIN Negative N/ A NORMAL: Negative PH 6.0 N/A NORMAL: 5.0-8.0 UROBILINOGEN 0.2 N/ A NORMAL: Negative NITRITE Positive N/ A NORMAL: Negative LEUKOCYTES Negative N/A NORMAL: Negative MICRO RBC 0-2 N/A NORMAL: 0-2 MICRO WBC 5-10 N/A NORMAL: 0-2 BACTERIA 2+ N/A NORMAL: None-Trace EPI CELLS 0-5 N/A NORMAL: 0-15 MUCUS None Seen N/A NORMAL: None-Small AMORPHOUS None Seen N/A NORMAL: None Seen YEAST None Seen N/A NORMAL: None Seen CRYSTALS None Seen N /A NORMAL: None Seen CAST None Seen N/A NORMAL: None Seen URINE CULTURE? YES N /A CULTURE URINE - Collect Date/Time: 08/02/2015 13:30 Test Name Code Test Result Test Units Test Ref Range SPEC SOURCE: RANDOM N/A Urine Culture, Routine 630-4 Final report N/A Active Medications Unknown or Not Available. Medications Administered During Visit Unknown or Not Available. Encounters Encounter Diagnosis Diagnosis Code Start Date Urinary tract infection, site not specified N390 08/02/2015 Social History Smoking Status Code Start Date End Date Never smoker [id number] Patient Decision Aids Unknown or Not Available. Discharge Instructions You were admitted to [facility] on 08/02/2015 13:25 with a principal diagnosis of Urinary tract infection, site not specified You had the following tests done: CULTURE URINE UA AUTO W/ MICRO You were discharged from [facility] on 08/02/2015 13:25 Should you have any questions prior to [...]
--- OUTSIDE RECORDS SUMMARY | 2016-05-29 07:42 | XMS REPORT | CCD ---
Author Author YOVANI RUEDA Organization Unknown Address [address] [place], [place] [id number] Phone 0 Care Team Providers Care Gun Numberer Name Role Phone MELISSA HARDY Attending Physician [phone] JOSELITO RUIZ Rounding Physician 0 Vital Signs Unknown or Not Available. Allergies Allergy Code Allergy Type Reaction Status CLINDAMYCIN 25405 Drug allergy Active IODINE 5933 Drug allergy Active KEFLEX 43666 Drug allergy Active SIMVASTATIN 60621 Drug allergy Active Procedures Unknown or Not Available. History of Immunizations Unknown or Not Available. Problems Unknown or Not Available. Results BASIC METABOLIC - Collect Date/Time: 03/14/2016 13:35 Test Name Code Test Result Test Units Test Ref Range GLUCOSE 120 mg/dL L=70 H=110 BUN 18 mg/dL L=7 H=18 CREATININE 0.69 mg/ dL L=0.60 H=1.30 AGE 70 YEARS GFR 84.6 L=60.0 H=120 SODIUM 142 mmol/L L=136 H=145 POTASSIUM 3.8 mmol/ L L=3.5 H=5.1 CHLORIDE 106 mmol/L L=98 H=107 CO2 26 mmol/L L=21 H=32 CALCIUM 8.8 mg/dL L=8.5 H=10.1 HGB A1C - Collect Date/Time: 03/14/2016 13:35 Test Name Code Test Result Test Units Test Ref Range HGB A1C 5.7 % L=4.5 H=6.2 eAG 117 mg/dL MAGNESIUM - Collect Date/Time: 03/14/2016 13:35 Test Name Code Test Result Test Units Test Ref Range MAGNESIUM 1.6 mg/dL L=1.8 H=2.4 THYROXINE (T4) FREE - Collect Date/Time: 03/14/2016 13:35 Test Name Code Test Result Test Units Test Ref Range FT4 0.97 ng/dL L=0.76 H=1.46 TSH - Collect Date/Time: 03/14/2016 13:35 Test Name Code Test Result Test Units Test Ref Range TSH 0.67 uIU/mL L=0.36 H=3.74 MICROALBUMIN/CREATININE RATIO - Collect Date/Time: 03/14/2016 13:40 Test Name Code Test Result Test Units Test Ref Range MICROALBUMIN 1.3 mg/ dL L=0.1 H=2.0 CREAT, URINE 82.0 mg /dL MICROALB/CREAT 15.9 ug/mg L=0.0 H=29.9 CBC W/ DIFF - Collect Date/Time: 03/14/2016 13:35 Test Name Code Test Result Test Units Test Ref Range WBC 5.1 x10^3 L=4.8 H=10.8 RBC 4.23 x10^6 L=4.20 H=5.40 HEMOGLOBIN 13.4 g/ dL L=12.0 H=16.0 HEMATOCRIT 40.6 % L=37.0 H=47.0 MCV 96 fL L=80 H=100 MCH 31.7 pg L=27.0 H=33.0 MCHC 33.1 g/dL L=33.0 H=37.0 RDW 14.5 % L=11.5 H=14.5 PLATELETS 210 x10^3 L=150 H=450 MPV 7.6 fL L=7.8 H=11.0 NEUTROPHILS 69.0 % L=40.0 H=80.0 LYMPHOCYTES 21.4 % L=20.0 H=45.0 MONOCYTES 7.1 % L=0.0 H=10.0 EOSINOPHILS 1.6 % L=0.0 H=5.0 BASOPHILS 0.9 % L=0.0 H=2.0 REFLEX MAN DIFF NO N /A UA AUTO W/ MICRO - Collect Date/Time: 03/14/2016 13:40 Test Name Code Test Result Test Units Test Ref Range COLOR Yellow N/A NORMAL: Yellow APPEARANCE Clear N/ A NORMAL: Clear GLUCOSE Negative N/ A NORMAL: Negative BILIRUBIN Negative N /A NORMAL: Negative KETONE Negative N/A NORMAL: Negative SPEC GRAVITY 1.025 N /A NORMAL: 1.005-1.030 BLOOD Negative N/A NORMAL: Negative PROTEIN Negative N/ A NORMAL: Negative PH 6.0 N/A NORMAL: 5.0-8.0 UROBILINOGEN 0.2 N/ A NORMAL: Negative NITRITE Negative N/ A NORMAL: Negative LEUKOCYTES Negative N/A NORMAL: Negative MICRO RBC None Seen N/A NORMAL: 0-2 MICRO WBC 0-2 N/A NORMAL: 0-2 BACTERIA None Seen N /A NORMAL: None-Trace EPI CELLS 0-5 N/A NORMAL: [...] Code Start Date End Date Never smoker [id number] Patient Decision Aids Unknown or Not Available. Discharge Instructions You were admitted to [facility] on 03/14/2016 13:32 You had the following tests done: BASIC METABOLIC CBC W/ DIFF HGB A1C MAGNESIUM MICROALBUMIN/CREATININE RATIO THYROXINE (T4) FREE TSH UA AUTO W/ MICRO You were discharged from [facility] on 03/14/2016 13:32 Should you have any questions prior to [...]
--- OUTSIDE RECORDS SUMMARY | 2016-05-29 07:42 | XMS REPORT ---
Author Author Jonathan Yoder Organization [facility] Address [address] [place] [address] Care Team Providers Care Waterproofer Name Role Phone Jonathan Yoder Unavailable [phone] PROBLEMS Unknown Problems ALLERGIES Unknown Allergies SOCIAL HISTORY No smoking Hx information available PLAN OF CARE VITAL SIGNS MEDICATIONS Unknown Medications RESULTS No Results PROCEDURES No Known procedures IMMUNIZATIONS No Known Immunizations
[2016-05-29 07:47] VITALS: Ht 170.2 cm; Wt 111.9 kg
--- NOTE | 2016-05-29 07:56 | ERPDOC ---
Departure Disposition Decision Date: May 29, 2016 Disposition Decision Time: 09:37 Disposition: 01 DISCHARGED HOME, SELF-CARE Impression Impression Impression: Primary Impression: Palpitations Severity: Moderate Condition: Stable Seen By: Physician only Referrals: MELISSA NAGEL MD Call Dr. Nagel's office tomorrow for follow-up appointment next 10 days Patient Instructions: Palpitations (ED) Problems/Meds/Labs Reviewed?: Yes Medications reviewed and manag: Yes Departure Forms: Return to Work/School Permit Return to Work/School Date: May 30, 2016 Follow up care ordered?: Yes Mental Status: Alert, Oriented HPI - General Medical General Chief Complaint: Chest Pain Stated Complaint: CP,A-FIB Time Seen by Provider: 07:55 HPI - General Medical Allergies: Coded Allergies: Oexfqsd-Ilj-Mag Reductase Inhibitor (Verified Allergy, Severe, WEAKNESS, ) latex (Verified Allergy, Mild, ITCHING, 03/31/13) AND SKIN BREAKOUT Past History Past Medical History Metabolic: hypercholesterolemia Vaccines Hx Influenza Vaccination: Yes (NOV 2012) Hx Pneumococcal Vaccination: Yes ("OVER 5 YEARS AGO") Physical Exam General Vitals and Pain First Documented Vital Signs Date Time Temp Pulse Resp B/P Pulse Ox O2 Delivery O2 Flow Rate FiO2 05/29/16 07:39 97.7 72 17 106/59 95 Room Air Weight: Kilograms: 111.900 Height (feet): 5 Height (inches): 7.00 Triage Pain Scale: Progress Results/Orders Orders Procedure Category Date Status Time EKG EKG 05/29/16 Taken 07:39 Cbc W/Auto LAB 05/29/16 Complete Diff-Reflex Manual 08:05 Probnp LAB 05/29/16 Complete 08:05 Troponin I W LAB 05/29/16 Complete Hemolysis Index 08:05 INR LAB 05/29/16 Complete 08:05 Chest 1 View RAD 05/29/16 Resulted 08:05 Iv Lock (Ed Only) EDM 05/29/16 Transmitted 08:05 Cmp - Comprehensive LAB 05/29/16 Complete Metabolic 08:15 Magnesium LAB 05/29/16 Complete 08:15 Aspirin (Asa) PHA 05/29/16 Complete 08:30 Lab Results Laboratory Tests Test 05/29/16 07:52 White Blood Count 5.2T/MM3 Red Blood Count 3.87M/MM3 Hemoglobin 12.5GM/DL Hematocrit 38.3% Mean Corpuscular Volume 99.0UM3 Mean Corpuscular Hemoglobin 32.3UUG Mean Corpuscular Hemoglobin Concent 32.6GM/DL RDW Standard Deviation 49.8FL Platelet Count 191T/MM3 Mean Platelet Volume 9.8UM3 Immature Granulocyte % (Auto) 0.2% Neutrophils (%) (Auto) 51.9% Lymphocytes (%) (Auto) 36.1% Monocytes (%) (Auto) 8.9% Eosinophils (%) (Auto) 2.5% Basophils (%) (Auto) 0.4% Absolute Immature Granulocyte (auto 0.01T/MM3 Absolute Neutrophils (auto) 2.7T/MM3 Absolute Lymphocytes (auto) 1.9T/MM3 Absolute Monocytes (auto) 0.5T/MM3 Absolute Eosinophils (auto) 0.1T/MM3 Absolute Basophils (auto) 0.0T/MM3 Prothromb Time International Ratio 3.00 Turbidity < 20 Sodium Level 145MEQ/L Potassium Level 3.8MEQ/L Chloride Level 107MEQ/L Carbon Dioxide Level 26MEQ/L Anion Gap 12MEQ/L Blood Urea Nitrogen 29.0MG/DL Creatinine 0.8MG/DL Glomerular Filtration Rate Calc 71 BUN/Creatinine Ratio 36RATIO Glucose Level 120MG/DL Calculated Osmolality 286MOSM/KG Calcium Level 9.5MG/DL Magnesium Level 1.8MG/DL Total Bilirubin 0.50MG/DL Icterus Index < 2 Aspartate Amino Transf (AST/SGOT) 25U/L Alanine Aminotransferase (ALT/SGPT) 28U/L Alkaline Phosphatase 58U/L Troponin I < 0.012ng/ml QW-Cry-J-Type Natriuretic Peptide 148PG/ML Total Protein 6.9G/DL Albumin 4.3G/DL Globulin 2.6G/DL Albumin/Globulin Ratio 1.7RATIO Chemistry Specimen Hemolysis < 15 Medications Current ED Medications Aspirin (ASA) 324 mg O ONCE PO ; Start 05/29/16 at 08:30; Stop 05/29/16 at 08: 31; Status DC JASS WARD MD May 29, 2016 07:56 JASS WARD MD May 29, 2016 07:56
--- NOTE | 2016-05-29 08:00 | NUR ---
DR WARD IN
[2016-05-29] MEDS ORDERED: CETI-269 PO (08:07)
[2016-05-29] MEDS ORDERED: CARV6.25 PO (08:07)
[2016-05-29] MEDS ORDERED: ISOS30TA53 PO (08:07)
[2016-05-29] MEDS ORDERED: CYAN10009 PO (08:07)
[2016-05-29] MEDS ORDERED: WARF5TAB6 PO (08:07)
[2016-05-29] MEDS ORDERED: FLEC100T2 PO (08:07)
[2016-05-29] MEDS ORDERED: METF500T4 PO (08:07)
[2016-05-29 08:12] LABS: BASOPHILS % (AUTO) 0.4 % (0-2); EOSINOPHILS # (AUTO) 0.1 T/MM3 (0-0.5); EOSINOPHILS % (AUTO) 2.5 % (0-4); HCT - HEMATOCRIT 38.3 % (36-46); HGB - HEMOGLOBIN 12.5 GM/DL (12-16); IMMATURE GRANULOCYTE # (AUTO) 0.01 T/MM3 (0.00-0.03); IMMATURE GRANULOCYTE % (AUTO) 0.2 % (0.0-0.5); LYMPHOCYTES # (AUTO) 1.9 T/MM3 (1-4.8); LYMPHOCYTES % (AUTO) 36.1 % (23-45); MEAN CORPUSCULAR HGB 32.3 UUG (26-34); MEAN CORPUSCULAR HGB CONC(MCHC 32.6 GM/DL (31-37); MEAN PLATELET VOLUME 9.8 UM3 (9.4-12.4); MONOCYTES # (AUTO) 0.5 T/MM3 (0-0.8); MONOCYTES % (AUTO) 8.9 % (0-9.0); NEUTROPHILS #(AUTO)-ABSOLUTE 2.7 T/MM3 (1.8-7.7); NEUTROPHILS % (AUTO) 51.9 % (33-66); RED BLOOD COUNT 3.87 M/MM3 (4.00-5.20); WBC - WHITE BLOOD COUNT 5.2 T/MM3 (4.5-11.0)
--- NOTE | 2016-05-29 08:15 | NUR ---
PORT XRY AT THIS TIME
[2016-05-29 08:17] LABS: PROTHROMBIN TIME 32.7 SEC (9.31-12.49)
[2016-05-29 08:30] LABS: ALBUMIN 4.3 G/DL (3.5-5.0); ALBUMIN/GLOBULIN RATIO 1.7 RATIO (1.1-2.2); ALKALINE PHOSPHATASE 58 U/L (38-126); ALT (SGPT) 28 U/L (9-52); ANION GAP 12 MEQ/L (5-15); AST (SGOT) 25 U/L (14-36); BUN/CREATININE RATIO 36 RATIO (6-26); CALCIUM 9.5 MG/DL (8.4-10.2); CHLORIDE 107 MEQ/L (98-107); CO2 - CARBON DIOXIDE 26 MEQ/L (22-30); CREATININE 0.8 MG/DL (0.7-1.2); GLOMERULAR FILTRATION RATE 71; GLUCOSE 120 MG/DL (65-110); MAGNESIUM 1.8 MG/DL (1.6-2.3); POTASSIUM 3.8 MEQ/L (3.6-5); SODIUM 145 MEQ/L (134-144); TOTAL PROTEIN 6.9 G/DL (6.3-8.2)
[2016-05-29] MEDS ORDERED: ASPIRIN 81 MG CHEWABLE TABLET PO ONE (08:30)
--- NOTE | 2016-05-29 08:30 | NUR ---
STATUS PATIENT REPORTS SHE HAD AN EPISODE OF THE CHEST PRESSURE THAT LASTED APPROX 5 MINUTES BEFORE SUBSIDING. NO COMPLAINTS AT THIS TIME
--- NOTE | 2016-05-29 08:31 | DI ---
Indication: ITS.REASON: chest pain mild shortness of breath palpitations PROCEDURE: CHEST 1 VIEW: Encounter: Initial Comparison: March 31, 2013 FINDINGS: The lungs are clear. There is no abnormal airspace opacity, pleural effusion or pneumothorax identified. The heart size, pulmonary vasculature and mediastinum are stable. IMPRESSION: Stable chest without acute cardiopulmonary abnormality. .
[2016-05-29 08:41] LABS: PROBNP 148 PG/ML (0-175)
--- OUTSIDE RECORDS SUMMARY | 2016-05-29 08:49 | XMS REPORT | Continuity of Care Document ---
Author Author [facility] Organization [facility] Address Unknown Phone Unavailable Allergies Active Description Code Type Severity Reaction Onset Reported/Identified Relationship to Patient Clinical Status Yes CEPHALEXIN MONOHYDRATE 6830 1 N/A N/A Yes clindamycin 2794 1 N/A N/A Yes iodine 852 1 N/A N/A Yes Nrazyoz-Dsr-Pnx Reductase Inhibitors 397292 3 N/A N/A Yes iodine Drug Allergy [...] Procedures Code [place] [address] TOTAL KNEE ARTHROPLASTY 04/12/2015 Results Encounters ACCT No. Visit Date/Time Discharge Status Pt. Type Provider Facility Loc./Unit Complaint [id number] 04/14/2013 12:51:00 2013 21:52:00 DIS Outpatient Micah Nagel MD [facility] [address]
--- OUTSIDE RECORDS SUMMARY | 2016-05-29 08:51 | XMS REPORT | Continuity of Care Document ---
Author Author [facility] Organization [facility] Address Unknown Phone Unavailable Allergies Active Description Code Type Severity Reaction Onset Reported/Identified Relationship to Patient Clinical Status Yes CEPHALEXIN MONOHYDRATE 6830 1 N/A N/A Yes clindamycin 2794 1 N/A N/A Yes iodine 852 1 N/A N/A Yes Ctzkgaw-Ian-Sks Reductase Inhibitors 524669 3 N/A N/A Yes iodine Drug Allergy [...] MD Final 427.31 ATRIAL FIBRILLATION 04/14/2013 Micah aNgel MD Admitting 786.50 CHEST PAIN NOS 04/14/2013 Micah Nagel MD Final 786.59 CHEST PAIN NEC 04/14/2013 Micah Nagel MD Final V85.37 BMI 37.0-37.9 ADULT 04/14/2013 Micah Nagel MD Admitting 786.51 PRECORDIAL PAIN 03/20/2016 W G89.29 Other chronic pain 03/20/2016 W 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 Visit Date/Time Discharge Status Pt. Type Provider Facility Loc./Unit Complaint [id number] 04/14/2013 12:51:00 2013 21:52:00 DIS Outpatient Micah Nagel MD [facility] [address]
--- NOTE | 2016-05-29 09:10 | NUR ---
STATUS PATIENT RESTING IN BED. NO DISTRESS NOTED.
[2016-05-29 09:45] VITALS: BP 113/59; PULSE 62; RESP 22; TEMP 97.7; O2SAT 95
== END 2016-05-29 09:45 | disposition home or self-care (01) ==
LOC: ED 07:36
DX: R00.2 Palpitations (principal); I48.91 Unspecified atrial fibrillation; Z79.01 Long term (current) use of anticoagulants
CPT/HCPCS: 36000; 71010; 80053; 83735; 83880; 84484; 85025; 85610; 93005; 99284; A9270